=== PATIENT | female | born 1980 | race Caucasian/White ===

== ENCOUNTER 2016-06-13 08:48 | Emergency (ER) | payer BC ==
[2016-06-13 09:03] VITALS: BP 105/79; PULSE 105; RESP 16; TEMP 98.8; O2SAT 95
[2016-06-13] MEDS ORDERED: IBUPROFEN 800 MG TAB PO ONE (09:26)
[2016-06-13] MEDS ORDERED: BICILLIN C-R 1200000 UNIT/2 ML SYRINGE IM ONE (09:26)
[2016-06-13] MEDS ORDERED: IBUPROFEN 200 MG TAB PO ONE (09:28)
[2016-06-13] MEDS ORDERED: BICILLIN L-A 1200000 UNIT/2 ML SYRINGE IM ONE ×2 (09:29→09:30)
--- NOTE | 2016-06-13 09:44 | UCPHY ---
H & P Time Seen by Provider: 06/13/16 08:55 Patient Type: Established HPI/ROS: HPI Sore throat. 36-year-old female by private vehicle. She reports a worsening sore throat over the last 24 hours. She reports that she 1st had the sore throat about 3 days ago but it has gotten significantly worse over the last day. She is able to swallow liquids but it hurts more to do so. She has had no stridor or voice changes. No sensation of her throat closing. Denies high fevers. Her 4-year- old daughter was recently diagnosed with strep throat. ROS: Constitutional: No fever, no chills. No weakness. Eyes: No discharge. No changes in vision. ENT: As above. No nasal congestion or rhinorrhea. Respiratory: No cough. No shortness of breath. Gastrointestinal: No abdominal pain, no vomiting, no diarrhea. Musculoskeletal: No back pain. No neck pain. No myalgias or arthralgias. Skin: No rashes. Neurological: No headache. Past medical history: None. Social history: Here by herself. with children. Physical Exam: General Appearance: Alert, no distress. This patient is responding to questions appropriately and in full sentences. This patient appears well- hydrated and well-nourished. No voice changes. Eyes: Pupils equal and round no pallor or injection. No lid edema, erythema or injection. ENT, Mouth: Mucous membranes are moist. Tonsils are out. Mild pharyngeal erythema. No edema or swelling. No asymmetry suggestive of abscess. No exudates. Neurological: Motor sensory function is grossly intact. Cranial nerves are normal. Gait is normal. Skin: Warm and dry, no rashes. Musculoskeletal: Neck is supple and nontender. No significant cervical lymphadenopathy. No pain on flexion of the neck. No stridor on auscultation of the neck. Extremities are symmetrical. All joints range without pain or impingement. Psychiatric: No agitation. No depression. Database: Rapid strep-positive. EKG: Imaging: Procedures: Emergency department course: After my evaluation she was given 600 mg of ibuprofen. Rapid strep was positive. I reviewed her medication allergies. She was given 1.2 million units of IM pen G LA. She feels comfortable going home and I feel she is safe for discharge. Follow-up and return to Urgent Care precautions discussed with her. All of her questions were answered. She was discharged in good condition. Differential Diagnosis: The differential diagnosis on this patient includes but is not limited to streptococcal pharyngitis, viral pharyngitis.. Tonsillar abscess, retropharyngeal abscess, tracheitis, epiglottitis unlikely. This represents a partial list of diagnoses considered. These considerations are based on history , physical exam, past history, reassessment and diagnostic testing. Smoking Status: Former smoker Constitutional: Initial Vital Signs Temperature (C) 37.1 C 06/13/16 09:00 Heart Rate 105 H 06/13/16 09:00 Respiratory Rate 16 06/13/16 09:00 Blood Pressure 105/79 06/13/16 09:00 O2 Sat (%) 95 06/13/16 09:00 O2 Delivery Mode Room Air Allergies/Adverse Reactions: morphine Allergy (Intermediate, Verified 06/13/16 09:00) Hives Home Medications: Medication Instructions Recorded Alethea 28 Tablet 06/13/16 MDM/Departure - Depart Disposition: Home, Routine, Self-Care Clinical Impression: Acute streptococcal pharyngitis Condition: Good Instructions: Strep Throat (ED) Additional Instructions: Read and follow provided instructions. Follow-up with your primary care physician in 1-2 days for re-evaluation. Ibuprofen dosin mg every 6 hours with meals for the next 3 days only. Return to the emergency department for worsening pain, difficulty swallowing, any difficulty breathing or speaking, voice changes or other serious concerns. Referrals: OUT OF STATE,. [Primary Care Provider] - As per Instructions - PQRS PQRS Measurement: Not applicable.
== END 2016-06-13 09:50 | disposition home or self-care (01) ==
LOC: CED 08:48
DX: J02.0 Streptococcal pharyngitis (principal); Z88.5 Allergy status to narcotic agent
CPT/HCPCS: 87880-PO; 96372-PO; 99214-PO; G0463-PO; J0561